=== PATIENT | female | born 1960 | race Caucasian/White ===

== ENCOUNTER → 2017-04-01 | Outpatient (CLI) | payer OTHER ==
[~2017-04-01] MED LIST: REGADENOSON 0.4 MG/5 ML DISP.SYRIN. IV ONE
--- NOTE | 2017-04-01 17:28 | PCVCIMAG ---
APPROVED REPORT Exam: Nuclear Stress Test Indication: Abnormal EKG, Pre-Operative CV evaluation Patient Location: Out-Patient Stress Nurse: Maria Isabel Madrigal RN, Nilsa Costa RN [place] Tech:Milla GARTH Oden Ht: 5 ft 5 in Wt: 161 lbs BSA: 1.80 m2 HR: 69 bpm BP: 140/77 mmHg BMI: 26.7 Rhythm: SR Medical History Medical History: HTN, Age Medications: HCTZ, Losartan Allergies: No known drug allergies Pretest Chest Pain Characteristics: No chest pain Exercise History: Physically active Physical Disabilities: Recent knee replacement NM EXAM: Myocardial Perfusion REST/STRESS Imaging Protocol: Rest Tc-99m/Stress Tc-99m 1 day Resting Data Rest SPECT myocardial perfusion imaging was performed in supine position 45 minutes following the intravenous injection of 11.5 mCi of Tc-99m Sestamibi. Time of rest injection: 819 Date: 04/01/2017 Administration Route: IV Administration Site: Left Hand Pharmacologic Stress Pharmacologic stress test was performed by injecting Regadenoson 0.4 mg IV push followed by the intravenous injection of 34.1 mCi of Tc-99m Sestamibi. Time of stress injection: 944 Date: 04/01/2017 Administration Route: IV Administration Site: Left Hand Gated Stress SPECT was performed 45 minutes after stress injection. The images were gated to evaluate regional wall motion and calculate left ventricular ejection fraction. Study Quality Study: Good Artifact: Mild Breast artifact Study Data Post stress, the left ventricular ejection was 73%.. SSS: 11 SRS: 13 SDS: 0 TID = 0.95. Perfusion No evidence of stress induced ischemia or prior myocardial infarction. Wall Motion Normal left ventricular size and function with no regional wall motion abnormalities. Nuclear Conclusion No evidence of stress induced ischemia or prior myocardial infarction. Normal left ventricular size and function with no regional wall motion abnormalities. Post stress, the left ventricular ejection was 73%.. No prior study available for comparison. Interpreted by: Gerardo Armas MD Electronically Approved: 04/01/2017 12:48:52 Stress Test Details Stress Test: Pharmacologic stress was paired with low level exercise. Reason for pharmacologic stress test: physical limitation. HR Resting HR: 69 bpmMax Heart Rate (APMHR): 162 bpm Max HR Achieved: 114 bpmTarget HR (85% APMHR): 137 bpm % of APMHR: 70 Recovery HR: 77 bpm BP Resting BP: 140/77 mmHg Max BP: 150/62 mmHg ECG Resting ECG: Sinus Rhythm Stress ECG: Sinus Tachycardia Recovery ECG: Sinus Rhythm Clinical Reason for Termination: Completed protocol Stress Symptoms: Dyspnea, Nausea Exercise duration: 4 min 00 sec Exercise capacity: 1.6 METs Symptoms resolved during recovery. Stress ECG Conclusion ECG: Non-ischemic <Conclusion> ECG: Non-ischemic
== END | disposition home or self-care (01) ==
LOC: PCVCIMAG 07:56
PROVIDERS: ATTEND Internal Medicine Cardiovascular Disease
DX: Z01.818 Encounter for other preprocedural examination (principal); R94.31 Abnormal electrocardiogram [ECG] [EKG]; I10 Essential (primary) hypertension; R00.0 Tachycardia, unspecified; Z96.659 Presence of unspecified artificial knee joint
CPT/HCPCS: 78452; 93017; A9500; J2785

== ENCOUNTER → 2019-04-12 | Outpatient (CLI) | payer OTHER ==
--- NOTE | 2019-04-12 14:40 | PCVCIMAG ---
APPROVED REPORT Study performed: 04/12/2019 12:10:00 EXAM: Comprehensive 2D, Doppler, and color-flow Echocardiogram Patient Location: Echo lab Room #: 2Status: routine BSA: 1.77 HR: 74 bpmBP: 144/76 mmHg Rhythm: NSR Other Information Study Quality: Good Indications Pericardial Effusion PERICARDIAL EFFEUSION BY CT SCAN, Cough 2D Dimensions IVSd: 8.26 (7-11mm)LVOT Diam: 20.50 (18-24mm) LVDd: 43.43 mm PWd: 9.15 (7-11mm) LVDs: 24.05 (25-40mm) Left Atrium: 31.67 (27-40mm) Aortic Root: 28.96 mm Biplane EF: 55.0 % Volumes Left Atrial Volume (Systole) Single Plane 4CH: 37.37 mLSingle Plane 2CH: 38.39 mL Biplane LA Volume: 40.00 mLLA ESV Index: 23.00 mL/m2 Aortic Valve AoV Peak Orion.: 1.46 m/s AO Peak Gr.: 8.49 mmHg Mitral Valve E/A Ratio: 1.2 MV Decel. Time: 226.46 ms MV E Max Orion.: 1.11 m/s MV A Orion.: 0.95 m/s Pulmonary Vein P Vein S: 0.49 m/sP Vein A: 0.37 m/s P Vein D: 0.58 m/sP Vein A Dur.: 110.7 msec P Vein S/D Ratio: 0.84 Tricuspid Valve TR Peak Orion.: 1.69 m/s TR Peak Gr.: 11.42 mmHg TV Vmax: 0.68 m/sPA Pressure: 18.00 mmHg Left Ventricle The left ventricle is normal size. There is normal LV segmental wall motion. There is normal left ventricular wall thickness. Left ventricular systolic function is normal. The left ventricular ejection fraction is within the normal range. LVEF is 55-60%. This study is not technically sufficient to allow evaluation of the LV diastolic function. Right Ventricle Mild RV colapse is seen. The right ventricular systolic function is normal. Atria The left atrium size is normal. Right atrial collapse is seen Aortic Valve The aortic valve is normal in structure. No aortic regurgitation is present. There is no aortic valvular stenosis. Mitral Valve The mitral valve is normal in structure. There is no mitral valve regurgitation noted. No evidence of mitral valve stenosis. Tricuspid Valve The tricuspid valve is normal in structure. There is no tricuspid valve regurgitation noted. Pulmonic Valve The pulmonary valve is normal in structure. There is no pulmonic valvular regurgitation. Great Vessels The aortic root is normal in size. IVC is normal in size and collapses >50% with inspiration. Pericardium Large pericardial effusion with tamponade physiology. Large right pleural effusion. <Conclusion> Left ventricular systolic function is normal. There is normal LV segmental wall motion. LVEF is 55-60%. The aortic valve is normal in structure. No aortic regurgitation or stenosis. The mitral valve is normal in structure. No mitral valve regurgitation. Large pericardial effusion with tamponade physiology. Large right pleural effusion.
== END | disposition home or self-care (01) ==
LOC: PCVCIMAG 12:15
PROVIDERS: ATTEND Internal Medicine Cardiovascular Disease
DX: I31.3 Pericardial effusion (noninflammatory) (principal); J90 Pleural effusion, not elsewhere classified; I10 Essential (primary) hypertension; R06.02 Shortness of breath; R05 Cough
CPT/HCPCS: 93306

== ENCOUNTER → 2019-05-03 | Outpatient (CLI) | payer OTHER ==
--- NOTE | 2019-05-03 09:48 | PCVCIMAG ---
APPROVED REPORT Study performed: 05/03/2019 08:59:24 EXAM: Comprehensive 2D, Doppler, and color-flow Echocardiogram Patient Location: Echo lab Status: routine BSA: 1.77 HR: 63 bpmBP: 158/72 mmHg Rhythm: NSR Other Information Study Quality: Adequate Risk Factors: Cardiac Risk Factors: HTN Indications Dyspnea Pericardial Effusion Pleural Effusion 2D Dimensions IVSd: 9.12 (7-11mm) LVDd: 41.40 mm PWd: 9.01 (7-11mm)Ascending Ao: 30.60 (22-36mm) LVDs: 26.97 (25-40mm) Left Atrium: 28.64 (27-40mm) Aortic Root: 33.00 mm LV Single Plane 4CH: 67.18 % LV Single Plane 2CH: 62.48 % Biplane EF: 63.8 % Volumes Left Atrial Volume (Systole) Single Plane 4CH: 57.38 mLSingle Plane 2CH: 67.21 mL LA ESV Index: 36.00 mL/m2 Aortic Valve AoV Peak Orion.: 1.33 m/s AO Peak Gr.: 7.11 mmHgLVOT Max P.18 mmHg LVOT Max V: 1.14 m/s Mitral Valve E/A Ratio: 1.0 MV Decel. Time: 262.22 ms MV E Max Orion.: 0.95 m/s MV A Orion.: 0.99 m/s IVRT: 83.04 ms Pulmonary Valve PV Peak Orion.: 0.95 m/sPV Peak Gr.: 3.62 mmHg Pulmonary Vein P Vein S: 0.56 m/sP Vein A: 0.41 m/s P Vein D: 0.65 m/sP Vein A Dur.: 131.5 msec P Vein S/D Ratio: 0.86 Tricuspid Valve TR Peak Orion.: 2.50 m/s TR Peak Gr.: 24.91 mmHg Left Ventricle The left ventricle is normal size. There is normal LV segmental wall motion. There is normal left ventricular wall thickness. The left ventricular systolic function is normal. The left ventricular ejection fraction is within the normal range. LVEF is 60-65%. The left ventricular diastolic function is normal. Right Ventricle The right ventricle is normal size. The right ventricular systolic function is normal. Atria Left atrium is mildly dilated. The right atrium size is normal. Aortic Valve The aortic valve is normal in structure. No aortic regurgitation is present. There is no aortic valvular stenosis. Mitral Valve The mitral valve is normal in structure. Trace mitral regurgitation. No evidence of mitral valve stenosis. Tricuspid Valve The tricuspid valve is normal in structure. Mild tricuspid regurgitation with PAP of 32 mmHg. Pulmonic Valve The pulmonary valve is normal in structure. There is no pulmonic valvular regurgitation. Great Vessels The aortic root is normal in size. IVC is normal in size and collapses >50% with inspiration. Pericardium Moderate circumferential pericardial effusion. Large pleural effusion. <Conclusion> The left ventricular systolic function is normal. There is normal LV segmental wall motion. LVEF is 60-65%. Normal diastolic function The aortic valve is normal in structure. No aortic regurgitation or stenosis. The mitral valve is normal in structure. Trace mitral regurgitation. Moderate circumferential pericardial effusion. Large pleural effusion.
== END | disposition home or self-care (01) ==
LOC: PCVCIMAG 09:02
PROVIDERS: ATTEND Internal Medicine
DX: I36.1 Nonrheumatic tricuspid (valve) insufficiency (principal); I31.3 Pericardial effusion (noninflammatory); I10 Essential (primary) hypertension; J90 Pleural effusion, not elsewhere classified; E78.5 Hyperlipidemia, unspecified; C34.91 Malignant neoplasm of unspecified part of right bronchus or lung; R06.02 Shortness of breath; Z87.891 Personal history of nicotine dependence
CPT/HCPCS: 93306